=== PATIENT | female | born 1995 | race American Indian/Alaskan Native ===

== ENCOUNTER 2020-01-21 04:35 | Inpatient (IN) | payer MEDICAID ==
[2020-01-21] MEDS ORDERED: LACTATED RINGERS 1,000 ML ONE (05:23)
[2020-01-21] MEDS ORDERED: BUTORPHANOL 2 MG/1 ML INJ IV PRN (05:47)
[2020-01-21] MEDS ORDERED: TERBUTALINE 1 MG/1 ML INJ IVP PRN (05:47)
[2020-01-21] MEDS ORDERED: LIDOCAINE (2%) 20 MG/1 ML VIAL 20 ML MDV INFILTRATI ONE (05:47)
[2020-01-21] MEDS ORDERED: ePHEDrine SULFATE 50 MG/1 ML INJ IV PRN ×2 (05:47→07:50)
[2020-01-21] MEDS ORDERED: fentaNYL 100 MCG/2 ML INJ IV PRN (05:47)
[2020-01-21] MEDS ORDERED: MINERAL OIL 30 ML ORAL LIQD PO PRN (05:47)
[2020-01-21] MEDS ORDERED: TERBUTALINE 1 MG/1 ML INJ SUB-Q PRN (05:47)
[2020-01-21] MEDS ORDERED: fentaNYL 100 MCG/2 ML INJ ONE (05:50)
[2020-01-21] MEDS ORDERED: OXYTOCIN DRIP 30 UNITS/500 ML BAG IV SCH (06:00)
[2020-01-21] MEDS ORDERED: OXYTOCIN 20 UNIT/1000ML DRIP 20 UNITS/1,000 ML BAG IV SCH (06:00)
[2020-01-21] MEDS ORDERED: LACTATED RINGERS 1,000 ML IV SCH (06:00)
[2020-01-21 06:07] LABS: Hematocrit 32.5 % (30.3-42.9); Mean Corpuscular HGB Conc 31 % (30-34); Platelet Count 262 K/mm3 (140-440); Red Blood Count 4.94 M/mm3 (3.65-5.03); Red Cell Distribution Width 16.7 % (13.2-15.2)
[2020-01-21 06:31] LABS: Mean Corpuscular Volume 66 fl (79-97)
--- NOTE | 2020-01-21 06:47 | History and Physical Report ---
History of Present Illness Date of examination: 01/21/20 Date of admission: 01/20/30 Chief complaint: labor History of present illness: 24 yo EDC 01/20/20 at 40+1 weeks for labor. She is a patient of [facility]. 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 Past History Past Medical History: no pertinent history Past Surgical History: no surgical history Family/Genetic History: none Social history: single, smoking, alcohol abuse, prescription drug abuse - Obstetrical History Expected Date of Delivery: 01/20/20 Actual Gestation: 40 Week(s) 1 Day(s) : 1 Para: 0 Hx # Term Pregnancies: 0 Number of Pregnancies: 0 Spontaneous Abortions: 0 Induced : 0 Number of Living Children: 1 Medications and Allergies Allergies Allergy/AdvReac Type Severity Reaction Status Date / Time No Known Allergies Allergy Verified 01/21/20 05:50 Active Meds: Active Medications Butorphanol Tartrate (Stadol) 2 mg IV Q2H PRN PRN Reason: Pain , Severe (7-10) Ephedrine Sulfate (Ephedrine Sulfate) 10 mg IV Q2M PRN PRN Reason: Hypotension Fentanyl (Sublimaze) 100 mcg IV Q2H PRN PRN Reason: Pain,Severe (7-10) LABOR PAIN Oxytocin/Sodium Chloride (Pitocin/Ns 20 Unit/1000ml Drip) 20 units in 1,000 mls @ 125 mls/hr IV DIRECT JOSE DAVID Oxytocin/Sodium Chloride (Pitocin/Ns 30 Unit/500ml) 30 units in 500 mls @ 1 mls/hr IV TITR JOSE DAVID; Protocol Lactated Ringer's (Lactated Ringers) 1,000 mls @ 125 mls/hr IV DIRECT JOSE DAVID Mineral Oil (Mineral Oil) 30 ml PO QHS PRN PRN Reason: Constipation Terbutaline Sulfate (Brethine) 0.25 mg SUB-Q ONCE PRN PRN Reason: Hyperstimulation/Hypertonicity Terbutaline Sulfate (Brethine) 0.25 mg IVP ONCE PRN PRN Reason: Hyperstimulation/Hypertonicity Review of Systems All systems: negative - Vital Signs Vital signs: Vital Signs Resp 20 01/21/20 04:52 Temp Pulse Resp BP Pulse Ox 98.1 F 78 20 99 01/21/20 05:10 01/21/20 06:19 01/21/20 04:52 01/21/20 06:19 - Physical Exam Breasts: Positive: normal Cardiovascular: Regular rate, Normal S1 Lungs: Positive: Clear to auscultation, Normal air movement Abdomen: Positive: normal appearance, soft, normal bowel sounds. Negative: distention, tenderness, guarding Genitourinary (Female): Positive: normal external genitalia, normal perenium Vagina: Positive: normal moisture Uterus: Positive: normal size, normal contour Anus/Rectum: Positive: normal perianal skin Extremities: Positive: normal Deep Tendon Reflex Grade: Normal +2 - Obstetrical FHR: category 1 Cervical Dilatation: 8 Cervical Effacement Percentage: 90 station: -1 Uterine Contraction Pattern: Regular Uterine Tone Measurement Phase: Contraction Uterine Contraction Intensity: Moderate Results Result Diagrams: 01/21/20 05:21 Abnormal lab results 01/21/20 Range/Units 05:21 Hgb 10.0 L (10.1-14.3) gm/dl MCV 66 L (79-97) fl MCH 20 L (28-32) pg RDW 16.7 H (13.2-15.2) % All other labs normal. Assessment and Plan A/P IUP 40+1 weeks GBS neg active labor admit,ivf, labs offer epidural expect vaginal delivery
[2020-01-21] MEDS ORDERED: DEXMEDETOMIDINE 200 MCG/2 ML VIAL IV ONE (06:59)
--- NOTE | 2020-01-21 07:46 | Progress Note ---
Labor Epidural - Labor Epidural Start Time: 06:59 Stop Time: 07:12 Performed by:: PONCE RODRIGUEZ Procedure: Patient is requesting combined spinal epidural for labor and pain. H&P, labs were reviewed. All questions and concerns were answered. Informed consent was obtained. Timeout performed. Patient in sitting position on side of bed. Sterile prep and drape was performed. [3] mL 1% lidocaine skin wheal at L [4]-L [5]. 18-gauge Touhy epidural needle advanced to [id number] using air technique, [6]. 27-gauge spinal needle advanced [clear positive free-flowing] CSF. spinal dose of [Precedex 10 mcg]. Epidural catheter advanced to [10] cm. [Negative] Aspiration, [negative] test dose. Sterile dressing applied. Patient tolerated procedure well.
--- NOTE | 2020-01-21 07:47 | Anesthesia Consultation ---
Anesthesia Consult and Med Hx Date of service: 01/21/20 - Airway Anesthetic Teeth Evaluation: Good ROM Head & Neck: Adequate Mental/Hyoid Distance: Adequate Mallampati Class: Class II Intubation Access Assessment: Probably Good - Pulmonary Exam CTA: Yes - Cardiac Exam Cardiac Exam: RRR - Pre-Operative Health Status ASA Pre-Surgery Classification: ASA2 Proposed Anesthetic Plan: Epidural - Pulmonary Hx Smoking: No Hx Asthma: No Hx Respiratory Symptoms: No SOB: No COPD: No Home Oxygen Therapy: No Hx Pneumonia: No Hx Sleep Apnea: No - Cardiovascular System Hx Hypertension: No Hx Coronary Artery Disease: No Hx Heart Attack/AMI: No Hx Angina: No Hx Percutaneous Transluminal Coronary Angioplasty (PTCA): No Hx Cardia Arrhythmia: No Hx Pacemaker: No Hx Internal Defibrillator: No Hx Valvular Heart Disease: No Hx Heart Murmur: No Hx Peripheral Vascular Disease: No - Central Nervous System Hx Neuromuscular Disorder: No Hx Seizures: No CVA: No Hx Back Pain: No Hx Psychiatric Problems: No - Gastrointestinal Hx Ulcer: No Hx Gastroesophageal Reflux Disease: Yes - Endocrine Hx Renal Disease: No Hx End Stage Renal Disease: No Hx Cirrhosis: No Hx Liver Disease: No Hx Insulin Dependent Diabetes: No Hx Non-Insulin Dependent Diabetes: No Hx Thyroid Disease: No Hx Hypothyroidism: No Hx Hyperthyroidism: No - Hematic Hx Anemia: No Hx Sickle Cell Disease: No - Other Systems Hx Alcohol Use: No Hx Substance Use: No Hx Cancer: No Hx Obesity: Yes
[2020-01-21] MEDS ORDERED: NALOXONE 2 MG/2 ML INJ IV PRN (07:50)
[2020-01-21] MEDS ORDERED: fentaNYL-BUPIV 2 MCG/ML-0.125% 200 MCG/100 ML BAG EPIDURAL SCH (08:00)
[2020-01-21] MEDS ORDERED: LANOLIN/ZINC/DIMETHICONE (LANSINOH) 7 GM TP PRN (08:35)
[2020-01-21] MEDS ORDERED: HYDROcodone/ACETAMINOPHEN 5-325 MG TAB PO PRN (08:35)
[2020-01-21] MEDS ORDERED: ACETAMINOPHEN 325 MG TAB PO PRN (08:35)
[2020-01-21] MEDS ORDERED: PROMETHAZINE 25 MG TAB PO PRN (08:35)
[2020-01-21] MEDS ORDERED: ONDANSETRON 4 MG/2 ML INJ IV PRN (08:35)
[2020-01-21] MEDS ORDERED: PROMETHAZINE 25 MG RECT SUPP PR PRN (08:35)
[2020-01-21] MEDS ORDERED: WITCH HAZEL/ GLYCERIN PAD TP PRN (10:00)
[2020-01-21] MEDS ORDERED: diphenhydrAMINE 25 MG CAP PO PRN (10:00)
--- NOTE | 2020-01-21 10:01 | Procedure Note ---
OB Delivery Note - Delivery Date of Delivery: 01/21/20 Surgeon: RICHARD WOODS Estimated blood loss: 200cc - Vaginal Delivery presentation: vertex Intrapartum events: none Route of delivery: Delivery placenta: spontaneous Delivery cord: 3 umbilical vessels Episiotomy: none Delivery laceration: 3rd degree Delivery repair: vicryl Anesthesia: local, intravenous, epidural Delivery comments: The patient progressed to complete complete +1 and pushed to deliver a live-born male infant with Apgars of 8 and 9 weight 7 pounds 15 ounces. With emergence of the head the patient sustained a midline perineal laceration. After delivery of the head the anterior shoulder was delivered. The infant was bulb suctioned and stimulated. The cord was clamped and cut x2 and the was placed on the patient's abdomen for skin to skin. The placenta delivered spontaneously intact with a three-vessel cord. As noted previously the patient sustained a midline perineal third-degree laceration. The site was injected with lidocaine. The laceration was repaired in a normal fashion with 2-0 Vicryl. Estimated blood loss of 200 mL - Infant A at 1 minute: 8 at 5 minutes: 9 Infant Gender: Male (Weight 7 pounds 15 ounces)
[2020-01-21 19:33] LABS: Hematocrit 27.5 % (30.3-42.9); Hemoglobin 8.5 gm/dl (10.1-14.3)
[2020-01-21] MEDS: DOCUSATE SODIUM 100 MG CAP PO SCH (21:51)
[2020-01-21] MEDS ORDERED: MAGNESIUM HYDROXIDE (MOM) ORAL LIQD UDC PO PRN (22:00)
[2020-01-21] MEDS: IBUPROFEN 600 MG TAB PO SCH (23:52)
[2020-01-22] MEDS: IBUPROFEN 600 MG TAB PO SCH ×4 (05:30→21:03)
--- NOTE | 2020-01-22 08:12 | Progress Note ---
Assessment and Plan A: PPD1 s/p Poor latch Acute on chronic anemia due to and blood loss Vital signs stable P: Routine pp care Ferrous sulfate supplementation consult Discharge to home today or tomorrow per infant's status Subjective - Subjective Date of service: 01/22/20 Principal diagnosis: s/p , 3rd degree lac Interval history: PPD1 s/p and third degree laceration Patient reports: appetite normal, voiding normally, pain well controlled, ambulating normally : doing well Objective - Vital Signs Latest vital signs: Vital Signs Temp Pulse Resp BP BP Pulse Ox 01/22/20 05:30 18 01/21/20 23:52 20 01/21/20 23:40 98.2 F 80 20 111/63 100 01/21/20 16:45 98.3 F 71 18 114/64 99 01/21/20 11:25 98.1 F 75 12 124/65 01/21/20 11:23 75 124/65 100 01/21/20 10:45 18 01/21/20 10:44 65 128/59 01/21/20 10:29 90 130/76 01/21/20 10:15 98.1 F 18 01/21/20 10:14 77 110/59 01/21/20 10:05 78 106/60 01/21/20 09:59 83 106/77 01/21/20 09:45 18 01/21/20 09:44 86 115/70 01/21/20 09:30 97 H 128/69 01/21/20 09:14 96 H 119/61 01/21/20 09:00 69 126/63 01/21/20 08:58 87 01/21/20 08:56 86 100 01/21/20 08:51 78 100 01/21/20 08:46 64 100 01/21/20 08:43 68 123/59 01/21/20 08:41 63 100 01/21/20 08:38 66 128/64 01/21/20 08:36 64 100 01/21/20 08:33 66 125/60 01/21/20 08:31 60 100 01/21/20 08:29 108 H 72 L 01/21/20 08:26 43 L 89 01/21/20 08:24 66 130/67 01/21/20 08:22 79 62 L 01/21/20 08:21 65 100 01/21/20 08:20 62 125/66 01/21/20 08:16 94 H 100 01/21/20 08:13 81 127/75 01/21/20 08:11 87 100 Intake and Output 01/21/20 01/22/20 01/22/20 23:59 07:59 15:59 Intake Total 240 Balance 240 Intake: Oral 240 Other: Total, Intake Amount 240 # Voids Void 1 1 - Exam Lungs: Present: Normal air movement Abdomen: Present: soft. Absent: distention Uterus: Present: firm, fundal height below umbilicus. Absent: bogginess Extremities: Present: normal - Labs Labs: Abnormal lab results 01/21/20 Range/Units 18:42 Hgb 8.5 L (10.1-14.3) gm/dl Hct 27.5 L (30.3-42.9) %
--- NOTE | 2020-01-22 08:15 | Discharge Summary ---
Providers - Providers Date of Admission: 01/21/20 08:35 Date of discharge: 01/22/20 Attending physician: JOLIE HERNANDEZ MD Primary care physician: JOLIE HERNANDEZ MD Hospitalization Reason for admission: active labor, IUP at term Delivery: Episiotomy: none Laceration: 3rd degree Other procedures: none complications: none Discharge diagnosis: IUP at term delivered baby: male Hospital course: Pt arrived in active labor and had an complicated by 3rd degree perineal laceration, repaired. She was found to have acute anemia due to blood loss. SHe met discharge criteria on PPD1. Condition at discharge: Good Disposition: DC-01 TO HOME OR SELFCARE Plan - Discharge Medications Prescriptions: Ibuprofen [Motrin 600 MG tab] 600 mg PO Q6H #60 tablet - Provider Discharge Summary Activity: routine, no sex for 6 weeks, no heavy lifting 4 weeks, no strenuous exercise Diet: routine Instructions: routine Additional instructions: [] Smoking cessation referral if applicable(refer to patient education folder for contact #) [] Refer to [facility] Booklet Call your doctor immediately for: * Fever > 100.5 * Heavy vaginal bleeding ( >1 pad per hour) * Severe persistent headache * Shortness of breath * Reddened, hot, painful area to leg or breast * Drainage or odor from incision. * Keep incision clean and dry at all times and follow doctor's instructions regarding bathing/showering - Follow up plan Follow up: RAVEN PAREDES NP [Referring] - 14 Days (Please call [place] [facility] congressional representative to schedule appointment.)
[2020-01-22] MEDS: DOCUSATE SODIUM 100 MG CAP PO SCH ×2 (09:34→21:04)
[2020-01-23] MEDS: IBUPROFEN 600 MG TAB PO SCH ×2 (03:09→09:02)
[2020-01-23] MEDS: DOCUSATE SODIUM 100 MG CAP PO SCH (09:03)
[2020-01-23 17:24] VITALS: BP 130/68
== END 2020-01-23 15:30 | disposition home or self-care (01) | DRG 775 ==
LOC: TRG 04:35 → LD 05:26 → TRG 08:35 → OB 11:43
PROVIDERS: ADMIT Obstetrics & Gynecology; ATTEND Obstetrics & Gynecology
PROC: 10E0XZZ Delivery of Products of Conception, External Approach (ICD-10-PCS; principal; 2020-01-21)
PROC: 0DQR0ZZ Repair Anal Sphincter, Open Approach (ICD-10-PCS; 2020-01-21)
DX: O70.20 Third degree perineal laceration during delivery, unspecified (principal); Z3A.40 40 weeks gestation of pregnancy; Z37.0 Single live birth
CPT/HCPCS: 36415; 85014; 85018; 85027; 86592; 86850; 86900; 86901; G0378; A6250; J2590; J3010; J3490; J7120

== ENCOUNTER 2021-07-04 00:47 | Emergency (ER) | payer MEDICAID ==
[2021-07-04 01:57] LABS: Basophils % (Auto) 0.6 % (0.0-1.8); Eosinophils % (Auto) 0.2 % (0.0-4.3); Hematocrit 38.5 % (30.3-42.9); Hemoglobin 12.3 gm/dl (10.1-14.3); Lymphocytes # (Auto) 1.4 K/mm3 (1.2-5.4); Lymphocytes % (Auto) 25.3 % (13.4-35.0); Mean Corpuscular HGB Conc 32 % (30-34); Monocytes # (Auto) 0.4 K/mm3 (0.0-0.8); Platelet Count 306 K/mm3 (140-440); Red Blood Count 5.75 M/mm3 (3.65-5.03); Red Cell Distribution Width 17.2 % (13.2-15.2)
[2021-07-04 01:58] LABS: Mean Corpuscular Volume 67 fl (79-97)
[2021-07-04 02:19] LABS: Alanine Aminotransferase 10 units/L (7-56); Albumin 4.2 g/dL (3.9-5); Blood Urea Nitrogen 4 mg/dL (7-17); Calcium 9.7 mg/dL (8.4-10.2); Hemolysis Index 11
[2021-07-04 02:22] LABS: Bilirubin,Urine NEG (Negative); Blood,Urine LG (Negative); Color,Urine Straw (Yellow); Mucus,Urine FEW /HPF; Protein,Urine <15 mg/dL mg/dL (Negative); Urobilinogen,Urine < 2.0 mg/dL (<2.0)
[2021-07-04 02:26] LABS: BUN/Creatinine Ratio 7
--- NOTE | 2021-07-04 03:32 | Ultrasound Report ---
ULTRASOUND OBSTETRIC TWIN INDICATION / CLINICAL INFORMATION: Vaginal bleeding. TECHNIQUE: Transabdominal and Transvaginal. COMPARISON: None available. FINDINGS TWIN A GESTATIONAL SAC: Well-defined oval shape and intrauterine in location. YOLK SAC: No significant abnormality. EMBRYO/FETUS: No significant abnormality. - [place]-Rump Length = 3.5 cm = 10 weeks, 3 day(s). - Heart Rate, beats per minute (if present) = 171 TWIN B GESTATIONAL SAC: Well-defined oval shape and intrauterine in location. YOLK SAC: No significant abnormality. EMBRYO/FETUS: No significant abnormality. - [place]-Rump Length = 4.1 cm = 11 weeks, 0 day(s). - Heart Rate, beats per minute (if present) = 179 ADNEXA: No significant abnormality. FREE FLUID: None. ADDITIONAL FINDINGS: None. IMPRESSION: 1. Twin diamniotic living intrauterine pregnancies with estimated sonographic age of 11 weeks, 1 day( s) and 10 weeks 5 days. Signer Name: Vinicius Padilla MD Signed: 07/04/2021 3:27 AM Workstation Name: [id number]
--- NOTE | 2021-07-04 03:32 | Ultrasound Report ---
ULTRASOUND OBSTETRIC TWIN INDICATION / CLINICAL INFORMATION: Vaginal bleeding. TECHNIQUE: Transabdominal and Transvaginal. COMPARISON: None available. FINDINGS TWIN A GESTATIONAL SAC: Well-defined oval shape and intrauterine in location. YOLK SAC: No significant abnormality. EMBRYO/FETUS: No significant abnormality. - [place]-Rump Length = 3.5 cm = 10 weeks, 3 day(s). - Heart Rate, beats per minute (if present) = 171 TWIN B GESTATIONAL SAC: Well-defined oval shape and intrauterine in location. YOLK SAC: No significant abnormality. EMBRYO/FETUS: No significant abnormality. - [place]-Rump Length = 4.1 cm = 11 weeks, 0 day(s). - Heart Rate, beats per minute (if present) = 179 ADNEXA: No significant abnormality. FREE FLUID: None. ADDITIONAL FINDINGS: None. IMPRESSION: 1. Twin diamniotic living intrauterine pregnancies with estimated sonographic age of 11 weeks, 1 day( s) and 10 weeks 5 days. Signer Name: Vinicius Padilla MD Signed: 07/04/2021 3:27 AM Workstation Name: [id number]
--- NOTE | 2021-07-04 03:45 | Emergency Department Report ---
ED Female HPI - General Chief complaint: Vaginal Bleeding Stated complaint: 10 WKS PREG/VAGINAL BLEEDING Source: patient Mode of arrival: Ambulatory Limitations: No Limitations - History of Present Illness Initial comments: Patient is a A1 25-year-old -Lithuanian female with no past medical history and who is approximately 11 weeks twin gestation presents to the ED with complaint of acute onset persistent vaginal bleeding after sexual intercourse about 2 hours ago. Patient states that the bleeding was initially mild but slightly getting heavier. Patient denies abdominal or pelvic pain, nausea and vomiting, dysuria, urinary frequency and urgency, chest pain or shortness of breath, sore throat, diarrhea,back pain or dyspareunia, fever and chills. MD Complaint: vaginal bleeding -: Sudden, hour(s) (2) Location: other (Vaginal) Radiation: non-radiating Severity: severe Quality: dull Consistency: constant Improves with: none Worsens with: intercourse Are you Now?: Yes (11 weeks twin gestation) Associated Symptoms: denies other symptoms, vaginal bleeding. denies: vaginal discharge, abdominal pain, nausea/vomiting, fever/chills, headaches, hematuria, rash, seizure, shortness of breath, syncope, weakness - Related Data Sexually active: Yes : 3 Para: 1 A: 1 Previous Rx's Medication Instructions Recorded Last Taken Type Ferrous Sulfate [Feosol 325 MG tab] 325 mg PO BID #60 tablet 01/22/20 Unknown Rx Ibuprofen [Motrin 600 MG tab] 600 mg PO Q6H #60 tablet 01/22/20 Unknown Rx Allergies Allergy/AdvReac Type Severity Reaction Status Date / Time No Known Allergies Allergy Verified 01/21/20 05:50 ED Review of Systems ROS: Stated complaint: 10 WKS PREG/VAGINAL BLEEDING Other details as noted in HPI Constitutional: denies: chills, fever Eyes: denies: eye pain, eye discharge, vision change ENT: denies: ear pain, throat pain Respiratory: denies: cough, shortness of breath, wheezing Cardiovascular: denies: chest pain, palpitations Endocrine: no symptoms reported Gastrointestinal: denies: abdominal pain, nausea, vomiting, diarrhea, hematochezia Genitourinary: abnormal menses (Vaginal bleeding). denies: urgency, dysuria, frequency, hematuria, discharge Musculoskeletal: denies: back pain, joint swelling, arthralgia Skin: denies: rash, lesions Neurological: denies: headache, weakness, paresthesias Psychiatric: denies: anxiety, depression Hematological/Lymphatic: denies: easy bleeding, easy bruising ED Past Medical Hx - Past Medical History Hx Hypertension: No Hx Heart Attack/AMI: No Hx Congestive Heart Failure: No Hx Diabetes: No Hx Deep Vein Thrombosis: No Hx Liver Disease: No Hx Renal Disease: No Hx Sickle Cell Disease: No Hx Seizures: No Hx Asthma: No Hx COPD: No Hx HIV: No Additional medical history: Intercranial hypertension - Surgical History Past Surgical History?: No Hx Pacemaker: No Hx Internal Defibrillator: No - Social History Smoking Status: Never Smoker Substance Use Type: None - Medications Home Medications: Home Medications Medication Instructions Recorded Confirmed Last Taken Type Ferrous Sulfate [Feosol 325 MG tab] 325 mg PO BID #60 tablet 01/22/20 Unknown Rx Ibuprofen [Motrin 600 MG tab] 600 mg PO Q6H #60 tablet 01/22/20 Unknown Rx ED Physical Exam - General Limitations: No Limitations General appearance: alert, in no apparent distress - Head Head exam: Present: atraumatic, normocephalic, normal inspection - Eye Eye exam: Present: normal appearance, PERRL, EOMI Pupils: Present: normal accommodation - ENT ENT exam: Present: normal exam, normal orophraynx, mucous membranes moist, TM's normal bilaterally, normal external ear exam - Neck Neck exam: Present: normal inspection, full ROM - Respiratory Respiratory exam: Present: normal lung sounds bilaterally. Absent: respiratory distress, wheezes, rales, rhonchi, chest wall tenderness, decreased breath sounds, prolonged expiratory - Cardiovascular Cardiovascular Exam: Present: regular rate, normal rhythm, normal heart sounds. Absent: systolic murmur, diastolic murmur, rubs, gallop - GI/Abdominal GI/Abdominal exam: Present: soft, normal bowel sounds. Absent: tenderness, guarding, rebound, hyperactive bowel sounds, hypoactive bowel sounds, organomegaly - Bi-manual exam: Present: other (Pelvic exam deferred at this time) - Extremities Exam Extremities exam: Present: normal inspection, full ROM, normal capillary refill - Back Exam Back exam: Present: normal inspection, full ROM. Absent: tenderness, CVA tenderness (R), CVA tenderness (L), muscle spasm, paraspinal tenderness - Neurological Exam Neurological exam: Present: alert, oriented X3, CN II-XII intact, normal gait, r eflexes normal - Psychiatric Psychiatric exam: Present: normal affect, normal mood - Skin Skin exam: Present: warm, dry, intact, normal color. Absent: rash ED Course Vital Signs 07/04/21 00:53 Temperature 99.2 F Pulse Rate 93 H Respiratory 16 Rate Blood Pressure 127/69 O2 Sat by Pulse 99 Oximetry ED Medical Decision Making - Lab Data Result diagrams: 07/04/21 01:29 07/04/21 01:29 - Radiology Data Radiology results: report reviewed, image reviewed [facility] [address] [place] [address] Ultrasound Report Signed Patient: HENRIQUE FLORES MR#: [id number] : 1995 Acct:[id number] Age/Sex: 25 / F ADM Date: 07/04/21 Loc: ED Attending Dr: Ordering Physician: DAVID AGUILAR Date of Service: 07/04/21 Procedure(s): US OB transvaginal Accession Number(s): [id number] cc: DAVID AGUILAR ULTRASOUND OBSTETRIC TWIN INDICATION / CLINICAL INFORMATION: Vaginal bleeding. TECHNIQUE: Transabdominal and Transvaginal. COMPARISON: None available. FINDINGS TWIN A GESTATIONAL SAC: Well-defined oval shape and intrauterine in location. YOLK SAC: No significant abnormality. EMBRYO/FETUS: No significant abnormality. - [place]-Rump Length = 3.5 cm = 10 weeks, 3 day(s). - Heart Rate, beats per minute (if present) = 171 TWIN B GESTATIONAL SAC: Well-defined oval shape and intrauterine in location. YOLK SAC: No significant abnormality. EMBRYO/FETUS: No significant abnormality. - [place]-Rump Length = 4.1 cm = 11 weeks, 0 day(s). - Heart Rate, beats per minute (if present) = 179 ADNEXA: No significant abnormality. FREE FLUID: None. ADDITIONAL FINDINGS: None. IMPRESSION: 1. Twin diamniotic living intrauterine pregnancies with estimated sonographic age of 11 weeks, 1 day(s) and 10 weeks 5 days. Signer Name: Vinicius Padilla MD Signed: 07/04/2021 3:27 AM Workstation Name: [id number] Transcribed By: AIDA Dictated By: Vinicius Padilla MD Electronically Authenticated By: Vinicius Padilla MD Signed Date/Time: 07/04/21326 DD/ 3 TD/TT: [facility] [address] [place] [address] Ultrasound Report Signed Patient: HENRIQUE FLORES MR#: [id number] : 1995 Acct:[id number] Age/Sex: 25 / F ADM Date: 07/04/21 Loc: ED Attending Dr: Ordering Physician: DAVID AGUILAR Date of Service: 07/04/21 Procedure(s): US OB <= 14 weeks fetus Accession Number(s): [id number] cc: DAVID AGUILAR ULTRASOUND OBSTETRIC TWIN INDICATION / CLINICAL INFORMATION: Vaginal bleeding. TECHNIQUE: Transabdominal and Transvaginal. COMPARISON: None available. FINDINGS TWIN A GESTATIONAL SAC: Well-defined oval shape and intrauterine in location. YOLK SAC: No significant abnormality. EMBRYO/FETUS: No significant abnormality. - [place]-Rump Length = 3.5 cm = 10 weeks, 3 day(s). - Heart Rate, beats per minute (if present) = 171 TWIN B GESTATIONAL SAC: Well-defined oval shape and intrauterine in location. YOLK SAC: No significant abnormality. EMBRYO/FETUS: No significant abnormality. - [place] Length = 4.1 cm = 11 weeks, 0 day(s). - Heart Rate, beats per minute (if present) = 179 ADNEXA: No significant abnormality. FREE FLUID: None. ADDITIONAL FINDINGS: None. IMPRESSION: 1. Twin diamniotic living intrauterine pregnancies with estimated sonographic age of 11 weeks, 1 day(s) and 10 weeks 5 days. Signer Name: Vinicius Padilla MD Signed: 07/04/2021 3:27 AM Workstation Name: [id number] Transcribed By: TL Dictated By: Vinicius Padilla MD Electronically Authenticated By: Vinicius Padilla MD Signed Date/Time: 07/04/21326 DD/ 3 TD/TT: Print Cancel Print - Medical Decision Making This is a A1 25-year-old -Lithuanian female with no past medical history and who is approximately 11 weeks twin gestation presents to the ED with complaint of acute onset persistent vaginal bleeding after sexual intercourse about 2 hours ago. Patient states that the bleeding was initially mild but slightly getting heavier. In the ED, patient is alert and oriented x3 and is not in any distress. Patient is hemodynamically stable. Lab test results were reviewed and are all [place] [id number]. Urinalysis is unremarkable except for large blood in urine. Transvaginal ultrasound showed twin diamniotic living intrauterine pregnancies with estimated sonographic age of 11 weeks, 1 day and with a heart rate of 179 bpm, and and also 10 weeks 5 days with a heart rate of 171 bpm. No other acute abnormal findings were identified. On reevaluation, patient is hemodynamically stable. Patient was discharged home and advised to maintain a complete pelvic rest and to follow-up with the [facility] physician in 3 to 5 days for reevaluation. Patient was advised return to the ED immediately if symptoms get worse. - Differential Diagnosis Threatened miscarriage; subchorionic bleed; UTI; ovarian cyst; Critical care attestation.: If time is entered above; I have spent that time in minutes in the direct care of this critically ill patient, excluding procedure time. ED Disposition Clinical Impression: Threatened miscarriage, Vaginal bleeding in patient after first trimester Disposition: 01 HOME / SELF CARE / HOMELESS Is pt being admited?: No Does the pt Need Aspirin: No Condition: Stable Instructions: Threatened Miscarriage, [id number], Vaginal Bleeding During , First Trimester, [id number] Additional Instructions: All lab test results were reviewed and are all nonactionable. Transvaginal ultrasound showed a twin diamniotic living intrauterine pregnancies with estimated sonographic age of 11 weeks, 1 day(s) and with heart rate of 179 bpm, and a 10 weeks 5 days fetus with a heart rate of 171 bpm. Therefore maintain a complete pelvic rest with no sexual activity, heavy lifting or stre nuous activities. Follow-up with your [facility] physician in 3 to 5 days for reevaluation. Return to the ED immediately if your symptoms get worse. Referrals: LUDIVINA EDMOND MD [Staff Physician] - 3-5 Days Time of Disposition: 03:51 Print Language: GERMAN
[2021-07-04 04:21] VITALS: BP 102/57
--- NOTE | 2021-07-05 08:03 | Ultrasound Report ---
ULTRASOUND OBSTETRIC TWIN INDICATION / CLINICAL INFORMATION: Vaginal bleeding. TECHNIQUE: Transabdominal and Transvaginal. COMPARISON: None available. FINDINGS TWIN A GESTATIONAL SAC: Well-defined oval shape and intrauterine in location. YOLK SAC: No significant abnormality. EMBRYO/FETUS: No significant abnormality. - [place]-Rump Length = 3.5 cm = 10 weeks, 3 day(s). - Heart Rate, beats per minute (if present) = 171 TWIN B GESTATIONAL SAC: Well-defined oval shape and intrauterine in location. YOLK SAC: No significant abnormality. EMBRYO/FETUS: No significant abnormality. - [place]-Rump Length = 4.1 cm = 11 weeks, 0 day(s). - Heart Rate, beats per minute (if present) = 179 ADNEXA: No significant abnormality. FREE FLUID: None. ADDITIONAL FINDINGS: None. IMPRESSION: 1. Twin diamniotic living intrauterine pregnancies with estimated sonographic age of 11 weeks, 1 day( s) and 10 weeks 5 days. Signer Name: Vinicius Padilla MD Signed: 07/04/2021 3:27 AM Workstation Name: [id number]
== END 2021-07-04 04:22 | disposition home or self-care (01) ==
LOC: ED 00:47
DX: O20.0 Threatened abortion (principal); O30.041 Twin pregnancy, dichorionic/diamniotic, first trimester; O20.9 Hemorrhage in early pregnancy, unspecified; G93.2 Benign intracranial hypertension; Z3A.11 11 weeks gestation of pregnancy
CPT/HCPCS: 36415; 76801; 76802; 76817; 80053; 81001; 84702; 85025; 86900; 86901; 99284